=== PATIENT | male | born 2000 | race Caucasian/White ===

== ENCOUNTER 2021-04-16 06:48 | Day surgery (SDC) | payer OTHER, SELFPAY ==
[~2021-04-16] VITALS: Ht 180.3 cm; Wt 71.2 kg
[2021-04-16] MEDS ORDERED: BUPIVACAINE-MPF/EPI 0.5% 30 ML VIAL INJ ONE (07:47)
[2021-04-16] MEDS ORDERED: GELATIN SPONGE 100 1 SPG TP ONE (07:48)
[2021-04-16] MEDS ORDERED: fentaNYL citrate 0.05 MG/ML VIAL ONE (08:03)
[2021-04-16] MEDS ORDERED: SUCCINYLCHOLINE CHLORIDE 200 MG/10 ML VIAL IVP ONE (08:04)
[2021-04-16] MEDS ORDERED: MIDAZOLAM 2 MG/2 ML VIAL ONE (08:04)
[2021-04-16] MEDS ORDERED: PROPOFOL 200 MG/20 ML VIAL IV ONE ×2 (08:04→08:40)
[2021-04-16] MEDS ORDERED: SEVOFLURANE 250 ML BTL INH ONE (08:40)
[2021-04-16] MEDS ORDERED: MEPERIDINE 50 MG/ML SYR ONE (09:07)
[2021-04-16] MEDS ORDERED: MEPERIDINE 25 MG/ML SYR IVP PRN (09:20)
[2021-04-16] MEDS ORDERED: LACTATED RINGERS 1,000 ML IV SCH (09:20)
[2021-04-16] MEDS ORDERED: diphenhydrAMINE 50 MG/ML VIAL IVP PRN (09:20)
[2021-04-16] MEDS ORDERED: ONDANSETRON 4 MG/2 ML VIAL IVP PRN (09:20)
[2021-04-16] MEDS ORDERED: HYDROmorphone 1 MG/ML AMP IVP PRN (09:20)
== END 2021-04-16 10:45 | disposition home or self-care (01) ==
LOC: MDS 06:48 → MMU 06:49 → MDS 10:45
PROVIDERS: ATTEND Surgery
DX: L05.91 Pilonidal cyst without abscess (principal)
CPT/HCPCS: 71045; 88304; J0330; J0690; J2175; J2250; J2704; J3010; J3490; J7060; J7120